=== PATIENT | female | born 1995 | race Caucasian/White ===

== ENCOUNTER 2017-02-24 03:44 | Emergency (ER) | payer OTHER ==
[2017-02-24 03:59] LABS: BILIRUBIN NEGATIVE (NEGATIVE); BLOOD TRACE-INTACT Ery/uL (NEGATIVE); CLARITY HAZY (CLEAR); COLOR YELLOW (YELLOW); GLUCOSE (U) NORMAL (NORMAL); KETONE (U) NEGATIVE (NEGATIVE); LEUKOCYTES TRACE Leu/uL (NEGATIVE); NITRITE NEGATIVE (NEGATIVE); PROTEIN NEGATIVE (NEGATIVE); SPECIFIC GRAVITY >=1.030 (1.001-1.030); UROBILINOGEN 0.2 mg/dL (0.2-1.0); pH 5.5 (5.0-9.0)
[2017-02-24 04:04] LABS: BACTERIA 1+; MUCOUS LARGE
== END 2017-02-24 04:20 | disposition home or self-care (01) ==
LOC: FER 03:44
PROVIDERS: Emergency Medicine
DX: J32.9 Chronic sinusitis, unspecified (principal)
CPT/HCPCS: 81001